=== PATIENT | male | born 1980 | race Caucasian/White ===

== ENCOUNTER 2019-04-12 23:40 | Emergency (ER) | payer OTHER ==
[~2019-04-12] VITALS: Ht 188 cm; Wt 99.8 kg
--- NOTE | 2019-04-12 23:45 | NUR ---
ED Nurse Note: RECIEVED PT ON GURNEY FROM HOME, AWAKE, ALERT AND ORIENTED X 4, S/P POSSIBLE SEIZURE ACTIVITY WITNESSED BY FAMILY, PT IS POSSIBLY WITHDRAWING FROM ALCOHOL USE AND HAD DRINK 3 HOURS AGO, PT HAS MILD HAND TREMORS AND ACTS PARANOID, DENIES CP, NO SOB, AND NO SZ ACTIVITY NOTED, PT IMMEDIATELY PLACED ON CARDIAC MONITORING, WILLR ESUME CARE ORDERED AND CONTINUE TO CLOSELY MONITOR.
[2019-04-13] MEDS ORDERED: chlordiazePOXIDE 25mg Cap ORAL ONE (00:15)
--- NOTE | 2019-04-13 00:20 | Emergency Room Report ---
History of Present Illness General Chief Complaint: Alcohol Intoxication Source: Patient Present Illness HPI 38-year-old male who is an alcoholic. He has been in rehab before. He presents with chief complaint of seizure. Patient has been drinking hard liquor since yesterday. He try to wean himself off by drinking hard cider. He was in a chair watching TV and had a tonic-clonic seizure activity lasted about a minute. He was foaming at the mouth. He lost consciousness. Now is back to baseline. He denies being an alcoholic but has been in rehab. Does not want IV or blood draw. Allergies: Coded Allergies: No Known Allergies (Unverified , 04/12/19) Patient History Past Medical History: see triage record, old chart reviewed Past Surgical History: none Pertinent Family History: none Social History: Reports: alcohol use Immunizations: other Reviewed Nursing Documentation: PMH: Agreed; PSxH: Agreed Nursing Documentation-PM Past Medical History: No Stated History Review of Systems Eye: Denies: eye pain, blurred vision ENT: Denies: ear pain, nose congestion, throat swelling Respiratory: Denies: cough, shortness of breath Cardiovascular: Denies: chest pain, palpitations Gastrointestinal: Denies: abdominal pain, diarrhea, nausea, vomiting Musculoskeletal: Denies: back pain, joint pain Skin: Denies: rash Neurological: Denies: headache, numbness Endocrine: Denies: increased thirst, increased urine Hematologic/Lymphatic: Denies: easy bruising All Other Systems: negative except mentioned in HPI Physical Exam Vital Signs Date Time Temp Pulse Resp B/P (MAP) Pulse Ox O2 Delivery O2 Flow Rate FiO2 04/12/19 23:36 97.7 92 22 142/68 (92) 100 Room Air Vitals normal Sp02 EP Interpretation: reviewed, normal General Appearance: well appearing, no apparent distress, alert Head: normocephalic, atraumatic Eyes: bilateral eye PERRL, bilateral eye EOMI ENT: hearing grossly normal, normal pharynx Neck: full range of motion, supple, no meningismus Respiratory: chest non-tender, lungs clear, normal breath sounds Cardiovascular #1: regular rate, rhythm, no murmur Gastrointestinal: normal bowel sounds, non tender, no mass, no organomegaly, no bruit, non-distended Musculoskeletal: back normal, gait/station normal, normal range of motion Psychiatric: mood/affect normal Medical Decision Making Diagnostic Impression: Primary Impression: Alcohol withdrawal seizure Qualified Codes: F10.230 - Alcohol dependence with withdrawal, uncomplicated ER Course Presents with alcohol withdrawal seizure. No trauma. He is alert and oriented x4. He is competent to refuse treatment. I order Librium for him here. Discussed this with his and mom. Explained to patient that because of his seizure activity, will restrict his driving privileges. Will do a DMV report. Will discharge home. Last Vital Signs Date Time Temp Pulse Resp B/P (MAP) Pulse Ox O2 Delivery O2 Flow Rate FiO2 04/12/19 23:36 97.7 92 22 142/68 (92) 100 Room Air Status: improved Disposition: HOME, SELF-CARE Condition: Stable Scripts Chlordiazepoxide (Chlordiazepoxide HCl) 25 Mg Capsule 25 MG ORAL THREE TIMES A DAY, #15 CAP 0 Refills Prov: Wesley Chou MD 04/13/19 Additional Instructions: Follow-up with your doctor in 7 days. Go to rehab. You will need clearance from a neurologist in order to drive again. Return if symptoms worsen. Wesley Chou MD Apr 13, 2019 00:20
[2019-04-13] MEDS ORDERED: LIBRIUM25 MG ORAL (00:22)
--- NOTE | 2019-04-13 00:22 | NUR ---
Medicated with Librium as ordered, tolerated well, hand still shakey, family at bedside, chairs provided.
[2019-04-13 00:55] VITALS: BP 138/73
[2019-04-13 01:00] VITALS: BP 138/73
== END 2019-04-13 01:00 | disposition home or self-care (01) ==
LOC: EDBD 23:40 → EMR 23:48
DX: F10.230 Alcohol dependence with withdrawal, uncomplicated (principal); G40.89 Other seizures
CPT/HCPCS: 99283